=== PATIENT | male | born 1995 | race African-American/Black ===

== ENCOUNTER 2018-04-18 08:04 | Emergency (ER) | payer OTHER ==
[2018-04-18 08:23] VITALS: BP 117/61
[2018-04-18] MEDS ORDERED: ACETAMINOPHEN 325 MG TABLET PO STA ×2 (08:38→09:05)
[2018-04-18] MEDS ORDERED: IBUPROFEN 400 MG TABLET PO STA (08:38)
--- NOTE | 2018-04-18 08:46 | ED Physician Documentation ---
History of Present Illness - Stated complaint Stated Complaint: KNEE INJURY - Chief complaint Chief Complaint: Ext Problem - Additonal information Additional information: hx from pt 22 y/o AD male was jumping at a football game and came down and his R knee deviated medially and now he has severe lateral pain and some knee swelling no other injury Review of Systems Musculoskeletal: reports: Pain with weight bearing PD PAST MEDICAL HISTORY - Present Medications Home Medications: Ambulatory Orders Medication Instructions Recorded Confirmed No Known Home Medications 04/18/18 04/18/18 - Allergies Allergies/Adverse Reactions: Allergies Allergy/AdvReac Type Severity Reaction Status Date / Time No Known Drug Allergies Allergy Verified 04/18/18 08:22 PD ED PE NORMAL - Vitals Vital signs reviewed: Yes - Extremities Extremities: Other (R knee: small effusion, TTP lateral jt line, no quad or patellar tendon TTP, ext mechanism intact, patella NT, no MCL ACL LCL lacity, limited flexion 2/2 pain, hurts with any movement so meniscla testing limited, MSV intact) Results - Vitals Vitals: Vital Signs - 24 hr 04/18/18 08:10 Temperature 36.4 C L Heart Rate 74 Respiratory 16 Rate Blood Pressure 117/61 O2 Saturation 100 Oxygen O2 Source Room air - Rads (name of study) knee Radiology: See rad report (no acute) PD MEDICAL DECISION MAKING - Sepsis Event Vital Signs: Vital Signs - 24 hr 04/18/18 08:10 Temperature 36.4 C L Heart Rate 74 Respiratory 16 Rate Blood Pressure 117/61 O2 Saturation 100 Oxygen O2 Source Room air Departure - Departure Disposition: 01 Home, Self Care Clinical Impression: Right knee injury Qualifiers: Encounter type: initial encounter Qualified Code(s): S89.91XA - Unspecified injury of right lower leg, initial encounter Condition: Good Instructions: ED Meniscal Injury Knee Poss Follow-Up: [facility] Dominic Dean [Provider Group] Comments: It is possible you injured the lateral meniscus (a cushion like structure between your thigh and silva bones) This cannot be seen on xray Recommend you wear an [place] wrap and also ice and elevate the knee for 20 min at a time to decrease the swelling Use crutches for a week to decrease weight bearing stress Motrin and tylenol for the pain If still painful in a week, follow up at [facility] orthopedic / sports medicine for further evaluation and perhaps a MRI of your knee Forms: Activity restrictions Discharge Date/Time: 04/18/18 10:10
--- NOTE | 2018-04-18 09:19 | XRAY Report ---
Reason: lateral pain after varus injury Procedure Date: 04/18/2018 Accession Number: [id number] / [id number] Procedure: XR - Knee 4 View RT CPT Code: FULL RESULT: EXAM: RIGHT KNEE RADIOGRAPHY EXAM DATE: 04/18/2018 09:00 AM. CLINICAL HISTORY: Lateral pain after varus injury. COMPARISON: None. TECHNIQUE: 4 views. FINDINGS: Bones: Normal. No fractures or bone lesions. Joints: Normal. No effusion. No subluxations. Soft Tissues: Bandage material is seen compressing soft tissues of the thigh. IMPRESSION: No acute fracture or dislocation. [facility]
[2018-04-18] MEDS ORDERED: oxyCODONE 5 MG TABLET PO STA (10:00)
== END 2018-04-18 10:10 | disposition home or self-care (01) ==
LOC: ED 08:04
DX: S89.91XA Unspecified injury of right lower leg, initial encounter (principal); X50.1XXA Overexertion from prolonged static or awkward postures, initial encounter; Y93.39 Activity, other involving climbing, rappelling and jumping off; Y93.61 Activity, american tackle football
CPT/HCPCS: 73564; 99282; 99283; A9270

== ENCOUNTER 2018-05-25 07:54 | Outpatient (CLI) | payer OTHER ==
--- NOTE | 2018-05-25 15:23 | MRI Report ---
Reason: EFFUSION, RIGHT KNEE Procedure Date: 05/25/2018 Accession Number: [id number] / [id number] Procedure: MRI - Knee RT W/O CPT Code: FULL RESULT: EXAM: RIGHT KNEE MRI WITHOUT CONTRAST. EXAM DATE: 05/25/2018 08:43 AM. CLINICAL HISTORY: Right knee injury while playing football. Right knee pain and clicking and effusion. COMPARISON: Knee 4 view right 04/18/2018 8:46 AM. TECHNIQUE: Multiplanar, multisequence T1-weighted and fluid-sensitive sequences of the knee without contrast. Other: None. FINDINGS: Bones and articular cartilage: Bone contusion at the anteromedial aspect of the medial femoral condyle. Nondisplaced, nondepressed fracture and bone contusion at the anterior aspect of the medial tibial plateau. Bone contusion at the anterior aspect of the lateral tibial plateau. Bone contusion at the posterior lateral aspect of the lateral tibial plateau and posterior lateral and anterior lateral aspects of the lateral femoral condyle. No bone lesions. Articular cartilage is within normal limits. No subluxation. Medial Meniscus: The medial meniscus is intact. Lateral Meniscus: The lateral meniscus is intact. Cruciate Ligaments: The anterior and posterior cruciate ligaments are intact. Collateral Ligaments: The medial collateral and lateral collateral ligamentous structures are intact. Tendons: The quadriceps, patellar, semimembranosus, and popliteus tendons are unremarkable. Musculature: No edema or fatty atrophy. Other: Very small effusion. No popliteal cyst. No loose bodies. The medial and lateral retinacula are intact. The subcutaneous tissues and fat pads are unremarkable. IMPRESSION: 1. Nondisplaced, nondepressed fracture and bone contusion at the anterior aspect of the medial tibial plateau. Bone contusions at the medial femoral condyle, lateral tibial plateau, and lateral femoral condyle. 2. No ligament or meniscal injury. 3. Very small joint effusion. [facility] MUSCULOSKELETAL RADIOLOGY SECTION
== END 2018-05-25 07:55 | disposition home or self-care (01) ==
LOC: DI 07:54
PROVIDERS: ATTEND Family Medicine
DX: S82.144A Nondisplaced bicondylar fracture of right tibia, initial encounter for closed fracture (principal); S70.11XA Contusion of right thigh, initial encounter